=== PATIENT | male | born 1960 | race Caucasian/White ===

== ENCOUNTER → 2018-01-25 12:40 | Outpatient (CLI) | payer BC, SELFPAY ==
--- NOTE | 2018-01-25 12:46 | CT_ITS ---
STUDY: CT CHEST WITH T WITHOUT CONTRAST REASON FOR EXAM: Male, 57 years old. Chest pain, lymphadenopathy RADIATION DOSAGE (If Supplied By Facility): CTDIvol = ( 20.56 ) mGy, DLP = ( 3334.33 ) mGycm TECHNIQUE: Transaxial imaging was performed before and after intravenous administration of 100 ml of Isovue 300 contrast material. Sagittal and coronal reconstructions were performed. Individualized dose optimization techniques were used for this CT. COMPARISON: Chest radiograph report dated June 10, 2011 FINDINGS: There is minimal biapical scarring. There is minimal scarring in the lingula. There are no lung nodules. There are no focal airspace opacities. There is no demonstrated pleural abnormality. The heart is normal in size. The mediastinum is unremarkable. The hilar regions are unremarkable. The pulmonary arteries are unremarkable. The thoracic aorta is within normal limits. There is an old fracture of the right clavicle. There are mild degenerative changes in the visualized spine. There is diffuse decreased density of the liver. CT/Chest W/WO Contrast IMPRESSION: There is no significant lymphadenopathy in the chest. There are no significant parenchymal abnormalities. Specifically there are no lung nodules. There are no focal airspace abnormalities. There is no pleural effusion. Incidentally noted is diffuse fatty infiltration of the liver. Electronically Signed: Liliana Garcia MD at 18:00 EDT Tel Direct: [phone], Service support ,
--- NOTE | 2018-01-25 12:46 | CT_ITS ---
STUDY: CT SOFT TISSUE NECK WITH AND WITHOUT CONTRAST REASON FOR EXAM: Male, 57 years old. Left shoulder, chest and neck pain RADIATION DOSAGE (If Supplied By Facility): CTDIvol = ( 20.56 ) mGy, DLP = ( 3334.33 ) mGycm TECHNIQUE: The patient was scanned in a multi-detector CT scanner. High resolution transaxial imaging was performed prior to and following intravenous administration of 100 ml of Isovue 300 contrast material. Sagittal and coronal images were reconstructed. Individualized dose optimization techniques were used for this CT. COMPARISON: None. FINDINGS: Normal bilateral parotid glands. Normal bilateral cook helper meat spaces. Normal bilateral parapharyngeal spaces. Normal bilateral carotid spaces. Normal bilateral sublingual and submandibular glands and spaces. Normal visualized nasopharynx. Normal retropharyngeal space. Normal perivertebral space. Normal visualized bilateral faucial tonsils. The visualized tongue, tongue base and oropharynx are normal. The visualized cervical lymph nodes (levels I-) are within normal size limits, and maintain normal morphology. There is no demonstrated solid or cystic mass lesion. There is no abnormal contrast enhancement. Normal epiglottis, bilateral vallecula and hypopharynx. The pre-epiglottic and paraglottic adipose spaces are normal. Normal visualized bilateral piriform sinuses, aryepiglottic folds, vocal cords, and arytenoid-cricoid articulations. Normal subglottic trachea. Normal bilateral lobes of the thyroid gland. Normal visualized pulmonary apices. Normal visualized paranasal sinuses. Mild degenerative changes of the visualized cervical spine. Minor annular bulge at C3-4 and C4-5. Uncovertebral spurring slightly narrowing the neural foramina bilaterally at C5-6 and C6-7. CT/Soft Tissue Neck W/WO Contrast IMPRESSION: Normal unenhanced and enhanced CT examination of the soft tissues of the neck. Degenerative cervical changes. Electronically Signed: Endy Coburn DO at 0:00 EDT Tel [phone], Service support ,
[2018-01-25 13:36] LABS: Absolute Neutrophil Count 2.7 X10^3/uL (2.0-7.7); Basophil# 0.03 X10^3/uL; Basophil% 0.6 % (0-1); Eosinophil# 0.17 X10^3/uL; Eosinophils% 3.4 % (0-5); Hematocrit 42.8 % (40-54); Hemoglobin 14.5 g/dl (13.0-16.5); Lymphocyte % 35.9 % (19-41); Mean Corp Hgb Conc 33.9 g/gl (32-36); Mean Corpuscular Hgb 30.1 pg (27.0-32.0); Mean Platelet Vol. 9.7 fl (6.2-12.0); Monocyte# 0.35 X10^3/uL; Neutrophil # 2.65 X10^3/uL (2.7-7.7); Neutrophil % 52.9 % (47-70); Platelet Count 250 K/mm3 (150-450); RBC Distribution Width CV 12.3 % (11.6-14.6); RBC Distribution Width SD 39.8 fl (35.1-43.9); Red Blood Count 4.81 M/mm3 (4.6-6.2)
[2018-01-25 13:37] LABS: POSITIVE COUNT NO; POSITIVE DIFFERENTIAL NO; POSITIVE MORPHOLOGY NO
[2018-01-25 14:00] LABS: ALB/GLOB Ratio 1.4 RATIO (0.9-2.4); AST(SGOT) 33 U/L (15-37); Alanine Aminotransfer ALT/SGPT 69 U/L (16-61); Albumin, Serum 4.4 g/dL (3.2-5.0); Alkaline Phosphatase 37 U/L (45-117); Anion Gap 5 (5-15); BUN 26 mg/dL (7-18); BUN/Creat Ratio 19.5 RATIO (10-20); Chloride 105 mmol/L (98-107); Creatinine, Serum 1.33 mg/dL (0.70-1.30); EST Glomerular Filtration Rate 59 mL/min (>60); Est Glom Filt Rate - Afr Amer 71 mL/min (>60); Globulin 3.2 g/dL (2.2-4.2); Glucose 83 mg/dL (74-106); Potassium 4.6 mmol/L (3.5-5.1); Protein, Total 7.6 g/dL (6.4-8.2); Sodium Level 138 mmol/L (136-145)
== END ==
PROVIDERS: Family Provider Nurse Practitioner Family; PCP Nurse Practitioner Family; Visit Provider Nurse Practitioner Family
DX: R59.1 Generalized enlarged lymph nodes (principal)
CPT/HCPCS: 36415; 70492; 71270; 80053; 85025; Q9967

== ENCOUNTER → 2018-01-30 08:13 | Outpatient (CLI) | payer BC, SELFPAY ==
[2018-01-30 09:45] LABS: Absolute Lymphocyte Count 1.39 X10^3/ul (0.83-4.51); Basophil# 0.02 X10^3/uL; Basophil% 0.5 % (0-1); Eosinophil# 0.17 X10^3/uL; Eosinophils% 4.3 % (0-5); Hematocrit 44.8 % (40-54); Hemoglobin 15.4 g/dl (13.0-16.5); Lymphocyte # 1.39 X10^3/ul (4.0); Lymphocyte % 35.5 % (19-41); Mean Corp Hgb Conc 34.4 g/gl (32-36); Mean Corpuscular Hgb 30.3 pg (27.0-32.0); Monocyte# 0.31 X10^3/uL; Monocyte% 7.9 % (0-10); Neutrophil # 2.01 X10^3/uL (2.7-7.7); Neutrophil % 51.5 % (47-70); Platelet Count 250 K/mm3 (150-450); RBC Distribution Width SD 38.4 fl (35.1-43.9); Red Blood Count 5.09 M/mm3 (4.6-6.2); White Blood Count 3.9 K/mm3 (4.4-11.0)
[2018-01-30 09:47] LABS: POSITIVE COUNT NO; POSITIVE DIFFERENTIAL NO; POSITIVE MORPHOLOGY NO
[2018-01-30 10:04] LABS: ALB/GLOB Ratio 1.3 RATIO (0.9-2.4); AST(SGOT) 41 U/L (15-37); Alanine Aminotransfer ALT/SGPT 74 U/L (16-61); Albumin, Serum 4.4 g/dL (3.2-5.0); Alkaline Phosphatase 40 U/L (45-117); Anion Gap 6 (5-15); BUN 30 mg/dL (7-18); BUN/Creat Ratio 24.6 RATIO (10-20); Chloride 107 mmol/L (98-107); Cholesterol 177 mg/dL (200); Creatinine, Serum 1.22 mg/dL (0.70-1.30); EST Glomerular Filtration Rate 65 mL/min (>60); Est Glom Filt Rate - Afr Amer 79 mL/min (>60); Globulin 3.3 g/dL (2.2-4.2); Glucose 83 mg/dL (74-106); High Density Lipoprotein 30 mg/dL; Potassium 4.7 mmol/L (3.5-5.1); Protein, Total 7.7 g/dL (6.4-8.2); Sodium Level 141 mmol/L (136-145); Triglycerides 186 mg/dL; Very Low Density Lipoprotein 37 mg/dL (5-40)
[2018-02-03 16:08] LABS: Testosterone, Free 1.85 ng/dL (5.00-21.00)
[2018-02-04 08:10] LABS: Testosterone, % Free 3.03 % (1.50-4.20); Testosterone, Total 61 ng/dL (264-916)
== END ==
PROVIDERS: Family Provider Nurse Practitioner Family; PCP Nurse Practitioner Family; Visit Provider Nurse Practitioner Family
DX: E78.5 Hyperlipidemia, unspecified (principal); I10 Essential (primary) hypertension; E34.9 Endocrine disorder, unspecified
CPT/HCPCS: 36415; 80053; 80061; 84402; 84403; 85025

== ENCOUNTER → 2018-03-23 10:46 | Outpatient (CLI) | payer BC, SELFPAY ==
--- NOTE | 2018-03-23 10:49 | ECHOD_ITS ---
Reason For Study: DYSPNEA/SOB Procedure This was a 2D Doppler, Color Flow transthoracic echocardiogram. Exam performed in department. Left Ventricle Normal size and thickness. The estimated ejection fraction is 65 %. Stage 1 diastolic dysfunction. No regional wall motion abnormalities noted. Right Ventricle Normal size and thickness. Normal systolic function. Atria Normal left atrium. Normal right atrium. Normal atrial septum. Mitral Valve The mitral valve is structurally normal. No prolapse or stenosis seen. Tricuspid Valve Normal tricuspid valve. Trivial tricuspid valve insufficiency. Right ventricular systolic pressure estimated to be 29 mmHg. Aortic Valve Trisinus/trileaflet aortic valve. Mild diffuse aortic valve thickening. Mild (1+) eccentric aortic valve insufficiency. Pulmonic Valve Normal pulmonic valve. Great Vessels Normal aortic root. Normal arch. Normal inferior vena cava. Inferior vena cava collapse with sniff. Pericardium/Pleural No pericardial effusion. MMode/2D Measurements & Calculations LVIDd: 4.9 cm IVSd: 1.2 cm Ao root diam: 3.5 cm LVIDs: 3.1 cm LVPWd: 1.2 cm LA dimension: 3.7 cm RVDd: 3.4 cm FS: 37.3 % LAV(MOD-bp): 43.2 ml LA A4 area: 12.7 cm2 RA A4 area: 14.0 cm2 LAV(MOD-bp) Indexed: 20.2 ml/m2 LAV(MOD-sp2): 46.2 ml LAV(MOD-sp4): 33.1 ml Doppler Measurements & Calculations MV E max ronald: 91.2 cm/sec Lat Peak E' Ronald: 8.1 cm/sec Med Peak E' Ronald: 11.2 cm/sec MV A max ronald: 52.5 cm/sec E/E' lat: 11.3 E/E' med: 8.2 MV E/A: 1.7 Ao V2 max: 117.1 cm/sec AI max ronald: 459.3 cm/sec LV V1 max: 99.4 cm/sec Ao max P.5 mmHg AI max P.4 mmHg LV V1 max P.0 mmHg AI dec slope: 172.7 cm/sec2 AI P1/2t: 778.7 msec PA V2 max: 123.1 cm/sec TR max ronald: 239.7 cm/sec TR max P.0 mmHg Interpretation Summary The estimated ejection fraction is 65 %. Stage 1 diastolic dysfunction. Trivial tricuspid valve insufficiency. Right ventricular systolic pressure estimated to be 29 mmHg. Mild (1+) eccentric aortic valve insufficiency. Compared to echo report dated 05/27/2013, no appreciable changes noted. Ordering Physician: Asael Bruner Referring Physician: Scar Allen Performed By: Eulalia Lewis, HAIR, RVT
== END ==
PROVIDERS: Family Provider Nurse Practitioner Family; PCP Nurse Practitioner Family; Visit Provider Internal Medicine Cardiovascular Disease
DX: R06.00 Dyspnea, unspecified (principal); I10 Essential (primary) hypertension; E78.5 Hyperlipidemia, unspecified
CPT/HCPCS: 93306

== ENCOUNTER → 2018-04-18 13:43 | Outpatient (CLI) | payer BC, SELFPAY ==
--- NOTE | 2018-04-18 13:48 | STE_ITS ---
Reason For Study: HTN, ABN. EKG Stress Results Protocol: Darci Protocol Maximum Predicted HR: 164 bpm Target HR: 139 bpm% Max imum Predicted HR: 86 % DurationHeart Rate Stage (mm:ss) (bpm) BP BASELINE 60 132/80 STAGE 1 3:00 10 7 182/80 STAGE 2 3:00 14 1 230/98 RECOVERY 83 152/90 Stress Duration: 6:00 mm:ss Maximum Stress HR: 141 bpm Baseline Echocardiogram Findings The estimated ejection fraction is 65 %. Stress Echo Wall motion Data Resting WMIntermediate WMStress WM Resting Wall Motion Wall Motion Stress No regional wall motion No regional wall motion abnormalities noted. abnormalities noted. EKG Data Normal intervals are noted. The patient exercised according to the regular Darci protocol for a total duration of 6:01. The maximum heart rate attained was 141 beats per minute. This was 85% of maximum predicted heart rate. The patient exercised into stage 3 of the Darci protocol. During stress, there were no ST or T wave changes noted to suggest ischemia. No clinical angina was noted. No arrhythmias noted. Interpretation Summary The estimated ejection fraction is 65 %. Normal, adequate, treadmill echocardiogram. Negative for ischemia by EKG and echocardiographic criteria. No anginal symptoms noted. No arrhythmias noted. Hypertensive blood pressure response to exercise. Average exercise capacity for age. Test terminated due to attainment of target heart rate and hypertensive blood pressure response to exercise. Final LVEF is 75%. No complications. Ordering Physician: Asael Bruner Referring Physician: Asael Bruner Performed By: Tiffany Gordon, HAIR, RVT
== END ==
PROVIDERS: Family Provider Nurse Practitioner Family; PCP Nurse Practitioner Family; Visit Provider Internal Medicine Cardiovascular Disease
DX: I10 Essential (primary) hypertension (principal); R94.31 Abnormal electrocardiogram [ECG] [EKG]
CPT/HCPCS: 93017; 93350

== ENCOUNTER → 2018-05-01 14:32 | Outpatient (CLI) | payer BC, SELFPAY ==
--- NOTE | 2018-05-01 14:36 | RAD_ITS ---
STUDY: X-RAY - LUMBAR SPINE REASON FOR EXAM: Male, 57 years old. Lower back pain, chronic. Increasing. TECHNIQUE: 5 view(s) of the lumbar spine were obtained. COMPARISON: None FINDINGS: Normal lumbar lordosis. There is no substantial scoliosis. There is a normal alignment of the vertebrae. Normal vertebral bodies and endplates. Normal disc space heights. The soft tissue structures are unremarkable. RAD/L/S Spine Min 4 Views IMPRESSION: Normal x-ray examination of the lumbar spine. Electronically Signed: Scar Roland, at 15:01 EDT Tel , Service support ,
== END ==
PROVIDERS: Family Provider Nurse Practitioner Family; PCP Nurse Practitioner Family; Visit Provider Anesthesiology Pain Medicine
DX: M54.5 Low back pain (principal)
CPT/HCPCS: 72110

== ENCOUNTER → 2018-06-18 10:32 | Outpatient (CLI) | payer BC, SELFPAY | PROVIDERS: Family Provider Nurse Practitioner Family; PCP Nurse Practitioner Family; Visit Provider Nurse Practitioner Family | DX: M54.5 Low back pain (principal); M51.37 Other intervertebral disc degeneration, lumbosacral region; M47.897 Other spondylosis, lumbosacral region | CPT/HCPCS: 70030; 72148 ==

== ENCOUNTER → 2018-07-19 11:00 | Outpatient (CLI) | payer BC, SELFPAY ==
--- NOTE | 2018-07-19 11:03 | US_ITS ---
STUDY: SUPERFICIAL ULTRASOUND - AXILLARY AREA REASON FOR EXAM: Male, 57 years old. Targeted imaging with pain in the left axillary region TECHNIQUE: A superficial ultrasound was performed with real-time and static stoddard-scale imaging. COMPARISON: None. FINDINGS: In the region the left axilla, in the area of pain, there is a small benign-appearing lymph node measuring 3.6 x 0.6 cm. US/Ext Non Vasc Limited/Soft Tiss IMPRESSION: Benign appearing lymph node in the left axilla Electronically Signed: Reynaldo Bocanegra DO at 11:49 EDT Tel , Service support ,
== END ==
PROVIDERS: Family Provider Nurse Practitioner Family; PCP Nurse Practitioner Family; Visit Provider Family Medicine
DX: M25.812 Other specified joint disorders, left shoulder (principal)
CPT/HCPCS: 76882

== ENCOUNTER → 2019-04-08 | Outpatient (CLI) | payer BC, SELFPAY ==
[2018-09-28 11:11] VITALS: BMI 29.8
--- NOTE | 2019-04-08 11:50 | RAD_ITS ---
STUDY: X-RAY - LEFT SHOULDER REASON FOR EXAM: Male, 58 years old. Pain TECHNIQUE: 4 view(s) of the shoulder. COMPARISON: None. FINDINGS: Normal glenohumeral articulation. Normal acromioclavicular joint. Normal acromion. Normal humeral head and visualized proximal humerus. The soft tissue structures are unremarkable. Normal visualized pulmonary apex. RAD/Shoulder min 2 Views IMPRESSION: Normal x-ray examination of the shoulder. Electronically Signed: Jen Pacheco MD at 17:30 EDT Tel , Service support ,
== END | disposition home or self-care (01) ==
LOC: RAD 11:49
PROVIDERS: Family Provider Family Medicine; PCP Family Medicine; Referring Provider Anesthesiology Pain Medicine; Visit Provider Anesthesiology Pain Medicine
DX: M25.512 Pain in left shoulder (principal)
CPT/HCPCS: 73030

== ENCOUNTER → 2019-04-18 | Outpatient (CLI) | payer BC, SELFPAY ==
[2019-04-18 14:00] VITALS: BMI 29.5
--- NOTE | 2019-04-18 15:06 | RAD_ITS ---
HISTORY: SHORT OF BREATH, PT HAVING STENT PLACED ADDITIONAL HISTORY: None provided. COMPARISON: CT 01/25/2018 TECHNIQUE: Frontal and lateral chest radiographs. Number of images including paperwork: 2 FINDINGS: LUNGS AND PLEURA: No consolidation, mass or pleural effusion. CARDIAC SILHOUETTE: Unremarkable. MEDIASTINUM AND SISSY: Aortic tortuosity. UPPER ABDOMEN: Unremarkable. SKELETON AND SOFT TISSUES: No acute findings. OTHER DEVICES AND HARDWARE: None. RAD/Chest PA and Lateral IMPRESSION: No acute cardiopulmonary abnormality. at 0438 Reported and signed by: Marita Pollack MD Electronically Signed: Marita Pollack MD at 4:38 EDT Tel , Service support ,
[2019-04-18 17:04] LABS: Absolute Lymphocyte Count 1.88 X10^3/ul (0.83-4.51); Absolute Neutrophil Count 2.1 X10^3/uL (2.0-7.7); Basophil# 0.04 X10^3/uL; Basophil% 0.9 % (0-1); Eosinophil# 0.16 X10^3/uL; Eosinophils% 3.4 % (0-5); Hemoglobin 13.5 g/dl (13.0-16.5); Lymphocyte # 1.88 X10^3/ul (4.0); Lymphocyte % 40.3 % (19-41); Mean Corp Hgb Conc 33.8 g/gl (32-36); Mean Corpuscular Hgb 29.3 pg (27.0-32.0); Mean Corpuscular Volume 86.8 fL (80-94); Mean Platelet Vol. 9.6 fl (6.2-12.0); Monocyte# 0.47 X10^3/uL; Monocyte% 10.1 % (0-10); Neutrophil # 2.11 X10^3/uL (2.7-7.7); Neutrophil % 45.1 % (47-70); Platelet Count 220 K/mm3 (150-450); RBC Distribution Width CV 12.2 % (11.6-14.6); RBC Distribution Width SD 38.7 fl (35.1-43.9); Red Blood Count 4.61 M/mm3 (4.6-6.2); White Blood Count 4.7 K/mm3 (4.4-11.0)
[2019-04-18 17:06] LABS: Prothrombin Time (Protime)PT. 13.3 SECONDS (11.7-14.9)
[2019-04-18 17:08] LABS: POSITIVE COUNT NO; POSITIVE DIFFERENTIAL NO; POSITIVE MORPHOLOGY NO
[2019-04-18 17:18] LABS: AST(SGOT) 46 U/L (15-37); Alanine Aminotransfer ALT/SGPT 85 U/L (16-61); Albumin, Serum 3.7 g/dL (3.2-5.0); Alkaline Phosphatase 36 U/L (45-117); Anion Gap 6 (5-15); BUN 20 mg/dL (7-18); BUN/Creat Ratio 14.4 RATIO (10-20); Bilirubin, Direct 0.08 mg/dL (0.00-0.30); Calcium,Total 9.1 mg/dL (8.5-10.1); Chloride 106 mmol/L (98-107); Creatinine, Serum 1.39 mg/dL (0.70-1.30); EST Glomerular Filtration Rate 56 mL/min (>60); Est Glom Filt Rate - Afr Amer 68 mL/min (>60); Globulin 3.5 g/dL (2.2-4.2); Glucose 85 mg/dL (74-106); Potassium 4.2 mmol/L (3.5-5.1); Protein, Total 7.2 g/dL (6.4-8.2); Sodium Level 144 mmol/L (136-145)
== END | disposition home or self-care (01) ==
PROVIDERS: Family Provider Family Medicine; PCP Family Medicine; Referring Provider Internal Medicine Cardiovascular Disease; Visit Provider Internal Medicine Cardiovascular Disease
DX: R06.09 Other forms of dyspnea (principal); E78.5 Hyperlipidemia, unspecified
CPT/HCPCS: 36415; 71046; 80048; 80076; 85025; 85610

== ENCOUNTER → 2019-05-03 | Outpatient (CLI) | payer BC, SELFPAY ==
[2019-04-18 14:00] VITALS: BMI 29.5
[2019-05-03 10:53] LABS: Cholesterol 175 mg/dL (200); High Density Lipoprotein 32 mg/dL; Triglycerides 220 mg/dL; Very Low Density Lipoprotein 44 mg/dL (5-40)
== END | disposition home or self-care (01) ==
LOC: MTLAB 09:03
PROVIDERS: Family Provider Family Medicine; PCP Family Medicine; Referring Provider Internal Medicine Cardiovascular Disease; Visit Provider Internal Medicine Cardiovascular Disease
DX: E78.5 Hyperlipidemia, unspecified (principal)
CPT/HCPCS: 36415; 80061

== ENCOUNTER 2019-05-08 06:58 | Day surgery (SDC) | payer BC, SELFPAY ==
[2019-04-18 14:00] VITALS: BMI 29.5
[2019-05-06 14:18] VITALS: BMI 29.5
[2019-05-08 11:45] LABS: Blood Gas Specimen Type VEN; VBG BASE EXCESS 0 mmol/L (-1.0-3.5); VBG Bicarbonate 25 mmol/L (22-26); VBG Oxygen Content 26 mmol/L (23-33); VBG PO2 36 mmHg (25-40); VBG SO2 70 % (50-70); VBG pCO2 39.6 mmHg (41-51); VBG pH 7.41 (7.32-7.42)
[2019-05-08 11:45] LABS: Base Excess -2 mmol/L (-2 to +2); Bicarbonate 22.3 mmol/L (22-26); Blood Gas Specimen Type ART; PO2 88 mmHG (75-100); SO2 97 % (95-99); Total Carbon Dioxide 23 mmol/L; pCO2 32.7 mmHg (35-45); pH 7.44 (7.35-7.45)
[2019-05-08 11:45] LABS: Blood Gas Specimen Type VEN; VBG BASE EXCESS 0 mmol/L (-1.0-3.5); VBG Bicarbonate 25 mmol/L (22-26); VBG Oxygen Content 26 mmol/L (23-33); VBG PO2 38 mmHg (25-40); VBG SO2 73 % (50-70); VBG pCO2 40.9 mmHg (41-51)
--- NOTE | 2019-05-08 11:48 | CL.D_ITS ---
Patient Name: ELOISE DUTTA Study Date: 05/08/2019 Performing: Asael Bruner MD Ht: 70.86 inches 180 cm : 1960 Wt: 211.64 lbs 96 kg Age: 58 Gender: male BSA: 2.16 PROCEDURE(S) PERFORMED [id number]/LHC/COR/LV CLINICAL PROFILE AND INDICATIONS Indications: Other;Dyspnea on exertion., Suspected CAD Heart Failure: None Stress/Imaging Stress Echocardiogram: Yes Result: NegativeStress Echocardiogram: Negative Angina Classification Anginal Classification w/in 2 Weeks: No symptoms CAD Presentations: Other: Dyspnea on exertion Comorbidities/Risk Factors: Hypertension Dyslipidemia CONCLUSIONS Normal coronary arteries Normal LV size, wall motion,and systolic function Cardiac output - Preserved The patient has normal pulmonary hemodynamics. RECOMMENDATIONS No recommendations -> Normal findings D/c asa/plavix Manual sheath removal PFTS and pulmonary consult. DESCRIPTION OF PROCEDURE The patient arrived to the procedure lab. The risks and benefits of the procedure as well as a full d escription of our services here and current unavailability of surgical backup were fully explained to the patient and/or their significant other prior to the catheterization. The Timeout was completed, verifying the correct patient and procedure. The patient's procedural site was prepped and draped in the usual fashion. Local anesthetic was given subcutaneously to right groin region with Lidocaine 2%. Using a modified Seldinger technique, arterial access was obtained via the right femoral artery, a 4 Fr sheath was inserted Venous access was obtained via the right femoral vein, a 7Fr sheath was insert ed. A 7Fr thermal dilution catheter was inserted and right heart pressures were recorded, it was then advanced to PA position for cardiac outputs. O2 saturations were then obtained. Thermal dilution car diac outputs were then recorded. Simultaneous pressures were then recorded. Left Ventriculography was performed in AGUIAR projection using a 4 Fr. Pigtail catheter. LV to AO pullback pr essures were then recorded. The Thermal dilution catheter was then removed. Left Coronary Artery jahaira ctive angiography was performed in multiple views using a 4 Fr. JL5 catheter. Right Coronary Artery s elective angiography was then performed in multiple views using a 4 Fr. 3DRC catheter.The arterial sh eath was pulled and manual compression applied until hemostasis is achieved.. The venous sheath was t hen pulled and manual compression applied until hemostasis achieved CORONARY ANGIOGRAPHY DOMINANCE: Right Dominant LEFT HEART ASSESSMENT Left Ventricular Ejection Fraction: by LV Gram 65 % Normal LV wall motion Normal Left Ventricular systolic function Normal Left Ventricular systolic function LVEDP: 11 mmHg Normal Left Ventricular End Diastolic Pressure RIGHT HEART ASSESSMENT Thermal CO: 6.27 Thermal CI: 2.9 Giulia CO: 6.02 Giulia CI: 2.79 PW: 6/4 3 PA: 19/8 12 RV: 30/-3 4 RA: 3/2 0 PVR: 115 Right Heart pressures - normal LEFT MAIN: Angiographically normal, Mild calcification, Angiographically normal LEFT ANTERIOR DESCENDING ARTERY: Angiographically normal, Angiographically normal CIRCUMFLEX ARTERY: Angiographically normal, Angiographically normal RIGHT CORONARY ARTERY: Angiographically normal Angiographically normal COMPLICATIONS No Complications PROCEDURE MEDICATIONS No medications given during this procedure SUMMARY OF HEMODYNAMIC DATA Time AIR REST ECG 07:26:35 RA 3/2 (0) 11:18:02 RV 30/-3, 4 11:18:14 PW 6/4 (3) PV 11:18:33 PA 19/8 (12) PA 11:18:46 LV 138/-25, 11 11:23:27 LV 139/-26, 11 11:23:34 LV 137/-26, 8 11:23:53 PW 8/5 (4) 11:23:53 LV 141/-26, 9 11:24:18 PW 21/14 (13) 11:24:18 LV 138/-24, 10 11:24:44 RV 25/-2, 5 11:24:44 LV 139/-24, 10 11:24:49 RV 25/-1, 4 11:24:49 LVp 155/-21, 14 11:26:07 AOp 135/67 (94) 11:26:12 RM AIR REST 11:46:16 Type SV CO (l/m) CI (l/m/ HR Time AIR REST Thermal 93.60 6.27 2.90 67 07:26:35 Giulia 89.90 6.02 2.79 67 07:26:35 Label % O2 Pres/Loc Time AIR REST AO 97 PV 11:31:17 PA 71 PA 11:31:21 Signed By Asael Bruner MD On 05/08/2019 11:47:57 Asael Bruner MD
== END 2019-05-08 16:10 | disposition home or self-care (01) ==
LOC: CLSP 06:59
PROVIDERS: Family Provider Family Medicine; PCP Family Medicine; Referring Provider Internal Medicine Cardiovascular Disease; Visit Provider Internal Medicine Cardiovascular Disease
DX: R06.09 Other forms of dyspnea (principal); I12.9 Hypertensive chronic kidney disease with stage 1 through stage 4 chronic kidney disease, or unspecified chronic kidney disease; N18.3 Chronic kidney disease, stage 3 (moderate); E78.5 Hyperlipidemia, unspecified; G47.33 Obstructive sleep apnea (adult) (pediatric); D50.9 Iron deficiency anemia, unspecified; I35.1 Nonrheumatic aortic (valve) insufficiency; I36.1 Nonrheumatic tricuspid (valve) insufficiency; G89.29 Other chronic pain; N40.0 Benign prostatic hyperplasia without lower urinary tract symptoms; M79.7 Fibromyalgia; K21.9 Gastro-esophageal reflux disease without esophagitis; Z79.899 Other long term (current) drug therapy
CPT/HCPCS: 82803; 93460; J7040; Q9967; C1751; C1769; C1894

== ENCOUNTER → 2019-06-06 | Outpatient (CLI) | payer BC, SELFPAY ==
[2019-05-06 14:18] VITALS: BMI 29.5
--- NOTE | 2019-06-06 11:35 | PFTCOMP_ITS ---
COMPLETE PULMONARY FUNCTION TEST INTERPRETATION Brief HPI: Patient is a 58 year old male, currently under the care of Dr. Bruner, who presents to [facility] for complete pulmonary function tests secondary to diagnosis of dyspnea. Respiratory therapist reports good effort and reproducible results. Interpretation: Forced expiration spirometry shows no large airways obstructive ventilatory defect with an FEV1 of 90% predicted. There is no significant bronchodilator response by strict ATS criteria. Spirograms are of good quality and plateau normally. The respiratory flow volume loop shows a normal pattern. Lung volumes by body plethysmography show a normal total lung capacity at 7.39 L, 106% predicted. All other lung volumes are within normal limits. Diffusion capacity by carbon monoxide is normal at 89% predicted. The airway resistance is normal. No previous pulmonary function tests were available for review. Impression: These pulmonary function tests are within normal limits
== END | disposition home or self-care (01) ==
LOC: PSN 07:22
PROVIDERS: Family Provider Family Medicine; PCP Family Medicine; Referring Provider Internal Medicine Cardiovascular Disease; Visit Provider Internal Medicine Cardiovascular Disease
DX: R06.02 Shortness of breath (principal)
CPT/HCPCS: 94060; 94726; 94729

== ENCOUNTER → 2019-08-15 08:21 | Outpatient (CLI) | payer BC, SELFPAY ==
[2019-06-11 10:25] VITALS: BMI 29.1
[2019-08-15 10:55] LABS: AST(SGOT) 32 U/L (15-37); Alanine Aminotransfer ALT/SGPT 68 U/L (16-61); Albumin, Serum 3.8 g/dL (3.2-5.0); Alkaline Phosphatase 34 U/L (45-117); Bilirubin, Direct 0.11 mg/dL (0.00-0.30); Cholesterol 168 mg/dL (200); Globulin 3.5 g/dL (2.2-4.2); High Density Lipoprotein 41 mg/dL; Protein, Total 7.3 g/dL (6.4-8.2); Triglycerides 144 mg/dL; Very Low Density Lipoprotein 29 mg/dL (5-40)
== END ==
PROVIDERS: Family Provider Family Medicine; PCP Family Medicine; Referring Provider Nurse Practitioner Family; Visit Provider Nurse Practitioner Family
DX: E78.5 Hyperlipidemia, unspecified (principal)
CPT/HCPCS: 36415; 80061; 80076

== ENCOUNTER → 2020-01-23 14:55 | Outpatient (CLI) | payer BC, SELFPAY ==
[2019-09-20 10:37] VITALS: BMI 29.1
[2020-01-23 16:07] LABS: PSA,Total- Diagnostic 7.01 ng/mL (0.0-4.0)
[2020-01-25 15:11] LABS: PSA, Free 1.49 ng/mL; PSA, Free % 22.6 % (.); PSA, Total Ultrasensitive 6.6 ng/mL (0.0-4.0)
== END ==
PROVIDERS: PCP Family Medicine; Referring Provider Urology; Visit Provider Urology
DX: R97.20 Elevated prostate specific antigen [PSA] (principal)
CPT/HCPCS: 36415; 84153; 84154

== ENCOUNTER → 2020-02-26 11:22 | Outpatient (CLI) | payer BC, SELFPAY ==
[2019-09-20 10:37] VITALS: BMI 29.1
[2020-02-26 12:30] LABS: PSA,Total- Diagnostic 4.74 ng/mL (0.0-4.0)
== END ==
PROVIDERS: PCP Family Medicine; Referring Provider Urology; Visit Provider Urology
DX: R97.20 Elevated prostate specific antigen [PSA] (principal)
CPT/HCPCS: 36415; 84153

== ENCOUNTER → 2020-11-27 09:14 | Outpatient (CLI) | payer BC, SELFPAY ==
[2019-09-20 10:37] VITALS: BMI 29.1
[2020-10-26 09:32] VITALS: BMI 30.7
[2020-11-27 12:57] LABS: PTHIN 33.4 pg/mL (18.4-80.1)
[2020-11-27 13:05] LABS: Anion Gap 5 (5-15); BUN 16 mg/dL (7-18); BUN/Creat Ratio 13.2 RATIO (10-20); Calcium,Total 9.6 mg/dL (8.5-10.1); Chloride 107 mmol/L (98-107); Creatinine, Serum 1.21 mg/dL (0.70-1.30); EST Glomerular Filtration Rate 65 mL/min (>60); Est Glom Filt Rate - Afr Amer 79 mL/min (>60); Glucose 93 mg/dL (74-106); Potassium 4.1 mmol/L (3.5-5.1); Sodium Level 140 mmol/L (136-145); T4 Free Direct 1.05 ng/dL (0.76-1.46); Thyroid Stim Hormone (TSH) 1.71 uIU/mL (0.358-3.74)
== END ==
PROVIDERS: Internal Medicine Endocrinology, Diabetes & Metabolism; PCP Family Medicine; Referring Provider Family Medicine
DX: E83.52 Hypercalcemia (principal)
CPT/HCPCS: 36415; 80048; 83970; 84439; 84443

== ENCOUNTER → 2020-12-17 10:32 | Outpatient (CLI) | payer BC, SELFPAY ==
[2020-10-26 09:32] VITALS: BMI 30.7
== END ==
PROVIDERS: PCP Family Medicine; Referring Provider Internal Medicine Endocrinology, Diabetes & Metabolism; Visit Provider Internal Medicine Endocrinology, Diabetes & Metabolism
DX: E83.52 Hypercalcemia (principal)

== ENCOUNTER → 2021-08-09 08:48 | Outpatient (CLI) | payer BC, SELFPAY ==
[2021-08-09 09:57] LABS: Hematocrit 40.6 % (40-54); Hemoglobin 13.2 g/dL (13.0-16.5); Mean Corp Hgb Conc 32.5 g/dL (32-36); Mean Corpuscular Volume 89.2 fL (80-94); Mean Platelet Vol. 9.6 fl (6.2-12.0); Platelet Count 212 K/mm3 (150-450); RBC Distribution Width CV 11.8 % (11.6-14.6); RBC Distribution Width SD 37.8 fl (35.1-43.9); Red Blood Count 4.55 M/mm3 (4.6-6.2); White Blood Count 3.8 K/mm3 (4.4-11.0)
[2021-08-09 10:23] LABS: AST(SGOT) 36 U/L (15-37); Alanine Aminotransfer ALT/SGPT 68 U/L (16-61); Albumin, Serum 3.6 g/dL (3.2-5.0); Alkaline Phosphatase 45 U/L (45-117); Anion Gap 5 (5-15); BUN 15 mg/dL (7-18); BUN/Creat Ratio 12.4 RATIO (10-20); Calcium,Total 8.9 mg/dL (8.5-10.1); Chloride 109 mmol/L (98-107); Cholesterol 167 mg/dL (200); Creatinine, Serum 1.21 mg/dL (0.70-1.30); EST Glomerular Filtration Rate 65 mL/min (>60); Est Glom Filt Rate - Afr Amer 79 mL/min (>60); Globulin 3.6 g/dL (2.2-4.2); Glucose 110 mg/dL (74-106); High Density Lipoprotein 36 mg/dL; PSA,Total- Diagnostic 3.79 ng/mL (0.0-4.0); Potassium 4.2 mmol/L (3.5-5.1); Protein, Total 7.2 g/dL (6.4-8.2); Sodium Level 141 mmol/L (136-145); Triglycerides 184 mg/dL; Very Low Density Lipoprotein 37 mg/dL (5-40)
== END ==
PROVIDERS: PCP Nurse Practitioner Family; Referring Provider Nurse Practitioner Family; Visit Provider Nurse Practitioner Family
DX: I12.9 Hypertensive chronic kidney disease with stage 1 through stage 4 chronic kidney disease, or unspecified chronic kidney disease (principal); N18.30 Chronic kidney disease, stage 3 unspecified; R97.20 Elevated prostate specific antigen [PSA]; E78.5 Hyperlipidemia, unspecified; E78.1 Pure hyperglyceridemia
CPT/HCPCS: 36415; 80053; 80061; 84153; 85027

== ENCOUNTER 2022-01-20 11:52 | Outpatient (CLI) | payer OTHER, SELFPAY ==
--- NOTE | 2022-01-20 11:56 | RAD_ITS ---
STUDY: X-RAY - LUMBOSACRAL SPINE REASON FOR EXAM: Male, 61 years old. PAIN TECHNIQUE: 7 view(s) of the lumbosacral spine were obtained. COMPARISON: 05/01/2018 FINDINGS: Normal lumbar lordosis. There is no substantial scoliosis. There is normal alignment of the vertebrae. No subluxation on the flexion or extension views to suggest instability. Normal vertebral bodies and endplates. Normal disc space heights. Normal bilateral sacral ala, sacroiliac joints, and visualized sacrum. Normal visualized soft tissue structures. RAD/L/S Spine Comp/w Bending Views IMPRESSION: Normal x-ray examination of the lumbosacral spine. Electronically Signed: Scar Owen MD at 12:15 EDT ,
== END 2022-01-20 23:59 | disposition home or self-care (01) ==
LOC: MTRAD 11:55
PROVIDERS: PCP Nurse Practitioner Family; Referring Provider Anesthesiology Pain Medicine; Visit Provider Anesthesiology Pain Medicine
DX: M51.37 Other intervertebral disc degeneration, lumbosacral region (principal)
CPT/HCPCS: 72114

== ENCOUNTER 2022-01-31 08:00 | Outpatient (CLI) | payer OTHER, SELFPAY ==
[2022-01-31 10:15] LABS: Hemoglobin 13.8 g/dL (13.0-16.5); Mean Corp Hgb Conc 34.5 g/dL (32-36); Mean Corpuscular Hgb 30.2 pg (27.0-32.0); Mean Corpuscular Volume 87.5 fL (80-94); Mean Platelet Vol. 9.7 fl (6.2-12.0); Platelet Count 226 K/mm3 (150-450); RBC Distribution Width CV 11.9 % (11.6-14.6); RBC Distribution Width SD 37.8 fl (35.1-43.9); Red Blood Count 4.57 M/mm3 (4.6-6.2)
[2022-01-31 10:33] LABS: Vitamin D,25 Hydroxy 63.3 ng/mL
[2022-01-31 10:39] LABS: AST(SGOT) 35 U/L (15-37); Alanine Aminotransfer ALT/SGPT 72 U/L (16-61); Albumin, Serum 3.6 g/dL (3.2-5.0); Alkaline Phosphatase 39 U/L (45-117); Anion Gap 8 (5-15); BUN 20 mg/dL (7-18); BUN/Creat Ratio 13.5 RATIO (10-20); Calcium,Total 9.2 mg/dL (8.5-10.1); Chloride 105 mmol/L (98-107); Cholesterol 194 mg/dL (200); Creatinine, Serum 1.48 mg/dL (0.70-1.30); EST Glomerular Filtration Rate 52 mL/min (>60); Est Glom Filt Rate - Afr Amer 62 mL/min (>60); Globulin 3.6 g/dL (2.2-4.2); Glucose 128 mg/dL (74-106); High Density Lipoprotein 30 mg/dL; PSA,Total - Annual Screen 4.57 ng/mL (0.00-4.00); Potassium 3.9 mmol/L (3.5-5.1); Protein, Total 7.2 g/dL (6.4-8.2); Sodium Level 139 mmol/L (136-145); Triglycerides 280 mg/dL; Very Low Density Lipoprotein 56 mg/dL (5-40)
== END 2022-01-31 23:59 | disposition home or self-care (01) ==
LOC: MTLAB 08:01
PROVIDERS: PCP Nurse Practitioner Family; Referring Provider Nurse Practitioner Family; Visit Provider Nurse Practitioner Family
DX: I12.9 Hypertensive chronic kidney disease with stage 1 through stage 4 chronic kidney disease, or unspecified chronic kidney disease (principal); M18.30 Unilateral post-traumatic osteoarthritis of first carpometacarpal joint, unspecified hand; E78.5 Hyperlipidemia, unspecified; E78.1 Pure hyperglyceridemia; R73.01 Impaired fasting glucose; E55.9 Vitamin D deficiency, unspecified; R97.20 Elevated prostate specific antigen [PSA]
CPT/HCPCS: 36415; 80053; 80061; 82306; 84153; 85027; G0103

== ENCOUNTER → 2022-08-01 | Outpatient (CLI) | payer OTHER, SELFPAY ==
[2022-08-01 10:10] LABS: Absolute Lymphocyte Count 1.51 X10^3/uL (0.83-4.51); Absolute Neutrophil Count 1.9 X10^3/uL (2.0-7.7); Basophil# 0.04 X10^3/uL; Eosinophil# 0.22 X10^3/uL; Eosinophils% 5.4 % (0-5); Hematocrit 39.9 % (40-54); Hemoglobin 13.1 g/dL (13.0-16.5); Lymphocyte # 1.51 X10^3/ul (0.83-4.51); Lymphocyte % 36.8 % (19-41); Mean Corp Hgb Conc 32.8 g/dL (32-36); Mean Corpuscular Hgb 29.6 pg (27.0-32.0); Mean Corpuscular Volume 90.1 fL (80-94); Mean Platelet Vol. 9.5 fl (6.2-12.0); Monocyte# 0.39 X10^3/uL; Monocyte% 9.5 % (0-10); NRBC Flagged by Analyzer 0 % (0-5); Neutrophil # 1.91 X10^3/uL (2.7-7.7); Neutrophil % 46.6 % (47-70); Platelet Count 232 K/mm3 (150-450); RBC Distribution Width CV 12.1 % (11.6-14.6); RBC Distribution Width SD 39.9 fl (35.1-43.9); Red Blood Count 4.43 M/mm3 (4.6-6.2); White Blood Count 4.1 K/mm3 (4.4-11.0)
[2022-08-01 10:35] LABS: Hemoglobin A1c 6.1 % (3.8-5.6)
[2022-08-01 10:49] LABS: AST(SGOT) 35 U/L (15-37); Alanine Aminotransfer ALT/SGPT 54 U/L (16-61); Albumin, Serum 3.7 g/dL (3.2-5.0); Alkaline Phosphatase 36 U/L (45-117); Anion Gap 7 (5-15); BUN 31 mg/dL (7-18); Calcium,Total 9.5 mg/dL (8.5-10.1); Chloride 107 mmol/L (98-107); Cholesterol 206 mg/dL (200); Creatinine, Serum 1.55 mg/dL (0.70-1.30); EST Glomerular Filtration Rate 49 mL/min (>60); Est Glom Filt Rate - Afr Amer 59 mL/min (>60); Globulin 3.7 g/dL (2.2-4.2); Glucose 129 mg/dL (74-106); High Density Lipoprotein 31 mg/dL; PSA,Total- Diagnostic 6.47 ng/mL (0.0-4.0); Potassium 3.9 mmol/L (3.5-5.1); Protein, Total 7.4 g/dL (6.4-8.2); Sodium Level 142 mmol/L (136-145); Triglycerides 290 mg/dL; Very Low Density Lipoprotein 58 mg/dL (5-40)
[2022-08-01 11:52] LABS: Vitamin D,25 Hydroxy 66.4 ng/mL
== END | disposition home or self-care (01) ==
PROVIDERS: PCP Nurse Practitioner Family; Referring Provider Nurse Practitioner Family; Visit Provider Nurse Practitioner Family
DX: R73.01 Impaired fasting glucose (principal); N18.30 Chronic kidney disease, stage 3 unspecified; E78.5 Hyperlipidemia, unspecified; R97.20 Elevated prostate specific antigen [PSA]; E55.9 Vitamin D deficiency, unspecified
CPT/HCPCS: 36415; 80053; 80061; 82306; 83036; 84153; 85025

== ENCOUNTER → 2022-12-28 | Outpatient (CLI) | payer OTHER, SELFPAY ==
[2022-12-28 10:14] LABS: Hematocrit 39.3 % (40-54); Hemoglobin 13.4 g/dL (13.0-16.5); Mean Corp Hgb Conc 34.1 g/dL (32-36); Mean Corpuscular Hgb 30.2 pg (27.0-32.0); Mean Corpuscular Volume 88.7 fL (80-94); Mean Platelet Vol. 9.7 fl (6.2-12.0); Platelet Count 227 K/mm3 (150-450); RBC Distribution Width CV 11.9 % (11.6-14.6); Red Blood Count 4.43 M/mm3 (4.6-6.2); White Blood Count 4.3 K/mm3 (4.4-11.0)
[2022-12-28 10:25] LABS: PTHIN 22.9 pg/mL (18.4-80.1)
[2022-12-28 10:28] LABS: Vitamin D,25 Hydroxy 74.4 ng/mL
[2022-12-28 10:31] LABS: AST(SGOT) 33 U/L (15-37); Alanine Aminotransfer ALT/SGPT 55 U/L (16-61); Albumin, Serum 3.6 g/dL (3.2-5.0); Alkaline Phosphatase 37 U/L (45-117); Anion Gap 7 (5-15); BUN 29 mg/dL (7-18); BUN/Creat Ratio 15.3 RATIO (10-20); Calcium,Total 9.5 mg/dL (8.5-10.1); Chloride 104 mmol/L (98-107); Cholesterol 186 mg/dL (200); Creatinine, Serum 1.89 mg/dL (0.70-1.30); EST Glomerular Filtration Rate 39 mL/min (>60); Est Glom Filt Rate - Afr Amer 47 mL/min (>60); Globulin 3.5 g/dL (2.2-4.2); Glucose 132 mg/dL (74-106); High Density Lipoprotein 32 mg/dL; Potassium 3.8 mmol/L (3.5-5.1); Protein, Total 7.1 g/dL (6.4-8.2); Sodium Level 141 mmol/L (136-145); Triglycerides 266 mg/dL; Very Low Density Lipoprotein 53 mg/dL (5-40)
[2023-01-07 12:33] LABS: PSA, Free 0.27 ng/mL; PSA, Free % 16.8 % (.); Renin, Plasma 9.257 ng/mL/hr (0.167-5.380)
== END | disposition home or self-care (01) ==
PROVIDERS: PCP Nurse Practitioner Family; Referring Provider Urology; Visit Provider Urology
DX: R97.20 Elevated prostate specific antigen [PSA] (principal); N18.30 Chronic kidney disease, stage 3 unspecified; E78.5 Hyperlipidemia, unspecified; E78.1 Pure hyperglyceridemia; R73.01 Impaired fasting glucose; I12.9 Hypertensive chronic kidney disease with stage 1 through stage 4 chronic kidney disease, or unspecified chronic kidney disease
CPT/HCPCS: 36415; 80053; 80061; 82306; 83970; 84153; 84154; 84244; 85027

== ENCOUNTER → 2023-03-29 | Outpatient (CLI) | payer OTHER, SELFPAY ==
--- NOTE | 2023-03-29 10:39 | ECHOD_ITS ---
Reason For Study: SOB Procedure This was a 2D Doppler, Color Flow transthoracic echocardiogram. Exam performed in department. Left Ventricle Normal LV size. Mild concentric left ventricular hypertrophy. Left ventricular systolic function is normal. The estimated ejection fraction is 60 %. No regional wall motion abnormalities noted. Right Ventricle Normal RV size. Normal systolic function. Atria Normal left atrium. Normal right atrium. Mitral Valve Normal mitral valve. Tricuspid Valve Normal tricuspid valve. Mild (1+) tricuspid valve insufficiency. Pulmonary artery systolic pressure is 30 mmHg. Aortic Valve Trisinus/trileaflet aortic valve. Pulmonic Valve Normal pulmonic valve. Great Vessels Normal aortic root. The pulmonary artery is normal size. Normal inferior vena cava. Pericardium/Pleural No pericardial effusion. MMode/2D Measurements & Calculations LVIDd: 5.2 cm IVSd: 1.4 cm Ao root diam: 3.5 cm LVIDs: 3.6 cm LVPWd: 1.4 cm FS: 31.1 % LAV(MOD-bp): 43.3 ml LVAd ap4: 33.6 cm2 SV(MOD-sp4): 64.4 ml LAV(MOD-bp) Indexed: 19.2 ml/m2 LVLd ap4: 8.4 cm LAV(MOD-sp2): 30.7 ml EDV(MOD-sp4): 110.0 ml LAV(MOD-sp4): 60.1 ml EDV(sp4-el): 113.6 ml LVAs ap4: 18.8 cm2 LVLs ap4: 6.5 cm ESV(MOD-sp4): 45.6 ml ESV(sp4-el): 46.3 ml EF(MOD-sp4): 58.5 % EF(sp4-el): 59.2 % SV(sp4-el): 67.3 ml LA A4 area: 18.3 cm2 LA dimension(2D): 4.3 cm RA A4 area: 14.5 cm2 Time Measurements MV dec time: 0.19 sec Doppler Measurements & Calculations MV E max ronald: 87.9 cm/sec Lat Peak E' Ronald: 11.7 cm/sec Med Peak E' Ronald: 10.4 cm/sec MV A max ronald: 59.6 cm/sec E/E' lat: 7.5 E/E' med: 8.5 MV E/A: 1.5 MV V2 max: 92.4 cm/sec Ao V2 max: 142.3 cm/sec MV max P.4 mmHg MV dec slope: 461.5 cm/sec2 Ao max P.1 mmHg MV V2 mean: 53.6 cm/sec Ao V2 mean: 98.1 cm/sec MV mean P.3 mmHg Ao mean P.4 mmHg MV V2 VTI: 35.8 cm Ao V2 VTI: 33.4 cm AV (velocity ratio): 0.93 LV V1 max: 116.8 cm/sec PA V2 max: 139.2 cm/sec TR max ronald: 262.9 cm/sec LV V1 max P.5 mmHg PA V2 mean: 85.4 cm/sec TR max P.6 mmHg LV V1 mean P.9 mmHg LV V1 mean: 81.0 cm/sec LV V1 VTI: 31.1 cm ECHO/Echo Complete Interpretation Summary Normal LV size. Left ventricular systolic function is normal. The estimated ejection fraction is 60 %. Mild (1+) tricuspid valve insufficiency. Mild concentric left ventricular hypertrophy. Ordering Physician: Jett Cui Referring Physician: Jett Cui Performed By: Angelica Casey RCS
== END | disposition home or self-care (01) ==
LOC: CVS 10:38
PROVIDERS: PCP Nurse Practitioner Family; Referring Provider Internal Medicine Cardiovascular Disease; Visit Provider Internal Medicine Cardiovascular Disease
DX: R06.09 Other forms of dyspnea (principal); R06.02 Shortness of breath
CPT/HCPCS: 93306

== ENCOUNTER → 2023-04-07 | Outpatient (CLI) | payer OTHER, SELFPAY ==
[2023-04-07 16:06] LABS: Anion Gap 4 (5-15); BUN 27 mg/dL (7-18); BUN/Creat Ratio 20.9 RATIO (10-20); Calcium,Total 9.6 mg/dL (8.5-10.1); Chloride 110 mmol/L (98-107); Creatinine, Serum 1.29 mg/dL (0.70-1.30); EST Glomerular Filtration Rate 60 mL/min (>60); Est Glom Filt Rate - Afr Amer 73 mL/min (>60); Glucose 101 mg/dL (74-106); Potassium 4.2 mmol/L (3.5-5.1); Sodium Level 140 mmol/L (136-145)
== END | disposition home or self-care (01) ==
LOC: MTLAB 11:54
PROVIDERS: PCP Nurse Practitioner Family; Referring Provider Nurse Practitioner Family; Visit Provider Nurse Practitioner Family
DX: I12.9 Hypertensive chronic kidney disease with stage 1 through stage 4 chronic kidney disease, or unspecified chronic kidney disease (principal); N18.31 Chronic kidney disease, stage 3a; R06.02 Shortness of breath
CPT/HCPCS: 36415; 80048

== ENCOUNTER → 2023-08-02 | Outpatient (CLI) | payer OTHER, SELFPAY ==
[2023-08-02 10:11] LABS: Hematocrit 43.5 % (40-54); Mean Corp Hgb Conc 32.2 g/dL (32-36); Mean Corpuscular Volume 90.1 fL (80-94); Mean Platelet Vol. 9.8 fl (6.2-12.0); Platelet Count 258 K/mm3 (150-450); RBC Distribution Width SD 39.5 fl (35.1-43.9); Red Blood Count 4.83 M/mm3 (4.6-6.2)
[2023-08-02 10:31] LABS: PTHIN 49.9 pg/mL (18.4-80.1)
[2023-08-02 10:38] LABS: Vitamin D,25 Hydroxy 71.1 ng/mL
[2023-08-02 11:09] LABS: ALB/GLOB Ratio 1.1 RATIO (0.9-2.4); AST(SGOT) 21 U/L (15-37); Alanine Aminotransfer ALT/SGPT 46 U/L (16-61); Albumin, Serum 3.7 g/dL (3.2-5.0); Alkaline Phosphatase 49 U/L (45-117); Anion Gap 4 (5-15); BUN 22 mg/dL (7-18); BUN/Creat Ratio 16.8 RATIO (10-20); Calcium,Total 8.9 mg/dL (8.5-10.1); Chloride 109 mmol/L (98-107); Cholesterol 170 mg/dL (200); Creatinine, Serum 1.31 mg/dL (0.70-1.30); EST Glomerular Filtration Rate 59 mL/min (>60); Est Glom Filt Rate - Afr Amer 71 mL/min (>60); Globulin 3.5 g/dL (2.2-4.2); Glucose 99 mg/dL (74-106); High Density Lipoprotein 44 mg/dL; PSA,Total- Diagnostic 1.35 ng/mL (0.0-4.0); Protein, Total 7.2 g/dL (6.4-8.2); Sodium Level 140 mmol/L (136-145); Triglycerides 143 mg/dL; Very Low Density Lipoprotein 29 mg/dL (5-40)
[2023-08-02 12:45] LABS: Hemoglobin A1c 6.1 % (3.8-5.6)
== END | disposition home or self-care (01) ==
LOC: MTLAB 09:06
PROVIDERS: PCP Nurse Practitioner Family; Referring Provider Nurse Practitioner Family; Visit Provider Nurse Practitioner Family
DX: I12.9 Hypertensive chronic kidney disease with stage 1 through stage 4 chronic kidney disease, or unspecified chronic kidney disease (principal); N18.30 Chronic kidney disease, stage 3 unspecified; R73.01 Impaired fasting glucose; E78.5 Hyperlipidemia, unspecified; E55.9 Vitamin D deficiency, unspecified
CPT/HCPCS: 36415; 80053; 80061; 82306; 83036; 83970; 84153; 84244; 84443; 85027

== ENCOUNTER → 2024-01-29 | Outpatient (CLI) | payer OTHER, SELFPAY ==
[2024-01-29 10:09] LABS: Hematocrit 40.9 % (40-54); Hemoglobin 13.5 g/dL (13.0-16.5); Mean Corpuscular Hgb 28.7 pg (27.0-32.0); Mean Platelet Vol. 9.7 fl (6.2-12.0); Platelet Count 200 K/mm3 (150-450); RBC Distribution Width CV 12.2 % (11.6-14.6); RBC Distribution Width SD 39.1 fl (35.1-43.9)
[2024-01-29 10:18] LABS: PTHIN 26.9 pg/mL (18.4-80.1)
[2024-01-29 10:21] LABS: Vitamin D,25 Hydroxy 64.6 ng/mL
[2024-01-29 10:35] LABS: ALB/GLOB Ratio 1.2 RATIO (0.9-2.4); AST(SGOT) 31 U/L (15-37); Alanine Aminotransfer ALT/SGPT 50 U/L (16-61); Albumin, Serum 3.7 g/dL (3.2-5.0); Alkaline Phosphatase 47 U/L (45-117); Anion Gap 5 (5-15); BUN 18 mg/dL (7-18); BUN/Creat Ratio 15.1 RATIO (10-20); Calcium,Total 9.1 mg/dL (8.5-10.1); Chloride 109 mmol/L (98-107); Cholesterol 187 mg/dL (200); Creatinine, Serum 1.19 mg/dL (0.70-1.30); EST Glomerular Filtration Rate 66 mL/min (>60); Est Glom Filt Rate - Afr Amer 80 mL/min (>60); Globulin 3.2 g/dL (2.2-4.2); Glucose 121 mg/dL (74-106); High Density Lipoprotein 36 mg/dL; Microalbumin,Random Urine 15.3 mg/L (NO RANGE EST.); Microalbumin:Creatinine Ratio 6.8 mg/g CRE (<30 mg/g CRE); PSA,Total- Diagnostic 1.42 ng/mL (0.0-4.0); Potassium 4.1 mmol/L (3.5-5.1); Protein, Total 6.9 g/dL (6.4-8.2); Sodium Level 142 mmol/L (136-145); Triglycerides 259 mg/dL; Very Low Density Lipoprotein 52 mg/dL (5-40)
[2024-02-02 17:07] LABS: Renin, Plasma 3.072 ng/mL/hr (0.167-5.380)
== END | disposition home or self-care (01) ==
PROVIDERS: PCP Nurse Practitioner Family; Referring Provider Nurse Practitioner Family; Visit Provider Nurse Practitioner Family
DX: I12.9 Hypertensive chronic kidney disease with stage 1 through stage 4 chronic kidney disease, or unspecified chronic kidney disease (principal); N18.30 Chronic kidney disease, stage 3 unspecified; E78.5 Hyperlipidemia, unspecified; R73.01 Impaired fasting glucose; E55.9 Vitamin D deficiency, unspecified; R97.20 Elevated prostate specific antigen [PSA]
CPT/HCPCS: 36415; 80053; 80061; 82043; 82306; 82570; 83970; 84153; 84244; 85027

== ENCOUNTER → 2024-08-12 | Outpatient (CLI) | payer OTHER, SELFPAY ==
[2024-08-12 11:06] LABS: Hematocrit 39.5 % (40-54); Hemoglobin 12.7 g/dL (13.0-16.5); Mean Corp Hgb Conc 32.2 g/dL (32-36); Mean Corpuscular Hgb 29.1 pg (27.0-32.0); Mean Corpuscular Volume 90.6 fL (80-94); Mean Platelet Vol. 10.5 fl (6.2-12.0); Platelet Count 216 K/mm3 (150-450); RBC Distribution Width CV 11.8 % (11.6-14.6); RBC Distribution Width SD 38.9 fl (35.1-43.9); Red Blood Count 4.36 M/mm3 (4.6-6.2); White Blood Count 4.5 K/mm3 (4.4-11.0)
[2024-08-12 11:19] LABS: ALB/GLOB Ratio 1.2 RATIO (0.9-2.4); AST(SGOT) 23 U/L (15-37); Alanine Aminotransfer ALT/SGPT 40 U/L (16-61); Albumin, Serum 3.7 g/dL (3.2-5.0); Alkaline Phosphatase 56 U/L (45-117); Anion Gap 6 (5-15); BUN 23 mg/dL (7-18); BUN/Creat Ratio 19.5 RATIO (10-20); Calcium,Total 9.2 mg/dL (8.5-10.1); Chloride 109 mmol/L (98-107); Cholesterol 141 mg/dL (200); Creatinine, Serum 1.18 mg/dL (0.70-1.30); EST Glomerular Filtration Rate 66 mL/min (>60); Est Glom Filt Rate - Afr Amer 80 mL/min (>60); Globulin 3.1 g/dL (2.2-4.2); Glucose 103 mg/dL (74-106); High Density Lipoprotein 40 mg/dL; PSA,Total- Diagnostic 1.86 ng/mL (0.0-4.0); Potassium 4.1 mmol/L (3.5-5.1); Protein, Total 6.8 g/dL (6.4-8.2); Sodium Level 143 mmol/L (136-145); Triglycerides 126 mg/dL; Very Low Density Lipoprotein 25 mg/dL (5-40)
[2024-08-12 11:52] LABS: Microalbumin,Random Urine 14.6 mg/L (NO RANGE EST.); Microalbumin:Creatinine Ratio 8.6 mg/g CRE (<30 mg/g CRE)
[2024-08-23 12:09] LABS: PTHIN 26 pg/mL (15-65)
== END | disposition home or self-care (01) ==
LOC: MTLAB 08:13
PROVIDERS: PCP Nurse Practitioner Family; Referring Provider Nurse Practitioner Family; Visit Provider Nurse Practitioner Family
DX: I12.9 Hypertensive chronic kidney disease with stage 1 through stage 4 chronic kidney disease, or unspecified chronic kidney disease (principal); N18.30 Chronic kidney disease, stage 3 unspecified; E78.5 Hyperlipidemia, unspecified; R97.20 Elevated prostate specific antigen [PSA]; R73.01 Impaired fasting glucose; E55.9 Vitamin D deficiency, unspecified
CPT/HCPCS: 36415; 80053; 80061; 82043; 82306; 82570; 83036; 83970; 84153; 85027

== ENCOUNTER → 2025-01-24 | Outpatient (CLI) | payer BC, SELFPAY ==
[2025-01-24 10:45] LABS: Hematocrit 39.9 % (40-54); Hemoglobin 13.5 g/dL (13.0-16.5); Mean Corp Hgb Conc 33.8 g/dL (32-36); Mean Corpuscular Hgb 30.2 pg (27.0-32.0); Mean Corpuscular Volume 89.3 fL (80-94); Platelet Count 182 K/mm3 (150-450); RBC Distribution Width SD 38.9 fl (35.1-43.9); Red Blood Count 4.47 M/mm3 (4.6-6.2); White Blood Count 3.9 K/mm3 (4.4-11.0)
[2025-01-24 11:38] LABS: Hemoglobin A1c 6.6 % (<=5.6)
[2025-01-24 11:41] LABS: Microalbumin,Random Urine < 12.0 mg/L (NO RANGE EST.); Microalbumin:Creatinine Ratio UNABLE TO CALCULATE mg/g CRE
[2025-01-24 11:43] LABS: PTHIN 36 pg/mL (11-61)
[2025-01-24 11:53] LABS: ALB/GLOB Ratio 1.7 RATIO (0.9-2.4); AST(SGOT) 41 U/L (<=37); Alanine Aminotransfer ALT/SGPT 47 U/L (<=46); Albumin, Serum 4.4 g/dL (3.4-4.8); Alkaline Phosphatase 54 U/L (40-129); Anion Gap 12 (5-15); BUN 29 mg/dL (4-19); BUN/Creat Ratio 22.3 RATIO (10-20); Calcium,Total 9.7 mg/dL (7.6-11.0); Carbon Dioxide 24.8 mmol/L (21.0-32.0); Chloride 104 mmol/L (98-108); EST Glomerular Filtration Rate 62 (>60); Globulin 2.6 g/dL (2.2-4.2); Glucose 147 mg/dL (70-99); Potassium 4.5 mmol/L (3.3-5.1); Sodium Level 141 mmol/L (133-145)
[2025-01-24 12:10] LABS: Cholesterol 187 mg/dL (<=200); High Density Lipoprotein 40 mg/dL; Low Density Lipoprotein Calc. 96 mg/dL; Triglycerides 256 mg/dL; Very Low Density Lipoprotein 51 mg/dL (5-40)
[2025-01-24 12:14] LABS: PSA,Total- Diagnostic 1.51 ng/mL (0.00-4.00); Vitamin D,25 Hydroxy 47.2 ng/mL (30-100)
== END | disposition home or self-care (01) ==
LOC: MTLAB 08:11
PROVIDERS: PCP Nurse Practitioner Family; Referring Provider Nurse Practitioner Family; Visit Provider Nurse Practitioner Family
DX: I12.9 Hypertensive chronic kidney disease with stage 1 through stage 4 chronic kidney disease, or unspecified chronic kidney disease (principal); N18.30 Chronic kidney disease, stage 3 unspecified; E78.5 Hyperlipidemia, unspecified; E78.1 Pure hyperglyceridemia; E55.9 Vitamin D deficiency, unspecified; R97.20 Elevated prostate specific antigen [PSA]; N40.1 Benign prostatic hyperplasia with lower urinary tract symptoms; R73.01 Impaired fasting glucose
CPT/HCPCS: 36415; 80053; 80061; 82043; 82306; 82570; 83036; 83970; 84153; 85027

== ENCOUNTER → 2025-08-07 | Outpatient (CLI) | payer BC, SELFPAY ==
--- NOTE | 2025-08-07 11:27 | RAD_ITS ---
PROCEDURE: L/S SPINE BENDING FLEX/EXT 08/07/2025 REASON FOR EXAM: PAIN TECHNIQUE: Procedure Code: [id number] Modality: DX Procedure: L/S SPINE BENDING FLEX/EXT COMPARISON: None FINDINGS: 6 views of the lumbosacral spine were obtained. There is normal mineralization of the osseous structures. There are no sacral fractures. Very mild osteoarthritic changes of the SI joints are noted. There are 5 lumbar-type vertebral bodies below the last set of paired ribs. The vertebral body heights and alignment are within normal limits. There is no spondylolisthesis or spondylolysis. There is no instability on the flexion or extension views. There is disc space narrowing involving the L1-L2, L2-L3 and L5-S1 disc spaces. The remaining disc spaces are well-maintained. Paravertebral soft tissue structures are unremarkable. RAD/L/S Spine Bending Flex/Ext IMPRESSION: Degenerative disc disease involving L1-L2, L2-L3, and L5-S1 levels. Very mild osteoarthritic changes of the SI joints bilaterally Reading Location: [id number]
--- NOTE | 2025-08-07 11:29 | RAD_ITS ---
PROCEDURE: CERV SPINE OBL/FLEX/EXT COMP 08/07/2025 REASON FOR EXAM: PAIN TECHNIQUE: Procedure Code: [id number] Modality: DX Procedure: CERV SPINE OBL/FLEX/EXT COMP COMPARISON: None FINDINGS: Vertebrae: Mild diffuse osteopenia of the cervical spine is noted. Vertebral body heights are within normal limits. There is no spondylolysis. Mild to moderate spondylosis is noted. The dens and lateral masses are somewhat obscured by normal overlapping anatomical structures. The visualized portions are unremarkable. There is a limbus vertebra off the anterior inferior aspect of the C4 level and anterior superior aspect of the C6 level Disc spaces: There is disc space narrowing involving the C5-C6 and C6-C7 disc spaces. The remaining disc spaces appear to be well-maintained. Alignment: The vertebral body alignment is within normal limits. There is no spondylolisthesis. Soft tissues: There is no prevertebral soft tissue swelling. Paravertebral soft tissues are unremarkable. RAD/Cerv Spine Obl/Flex/Ext Comp IMPRESSION: Mild diffuse osteopenia cervical spine Degenerative disc disease involving C5-C6 and C6-C7 Reading Location: [id number]
== END | disposition home or self-care (01) ==
LOC: MTRAD 11:25
PROVIDERS: PCP Nurse Practitioner Family; Referring Provider Anesthesiology Pain Medicine; Visit Provider Anesthesiology Pain Medicine
DX: M51.372 Other intervertebral disc degeneration, lumbosacral region with discogenic back pain and lower extremity pain (principal); M50.30 Other cervical disc degeneration, unspecified cervical region
CPT/HCPCS: 72052; 72120

== ENCOUNTER → 2025-08-07 | Outpatient (CLI) | payer BC, SELFPAY ==
[2025-08-07 10:09] LABS: Hematocrit 36.9 % (40-54); Hemoglobin 12.8 g/dL (13.0-16.5); Mean Corp Hgb Conc 34.7 g/dL (32-36); Mean Corpuscular Volume 85.6 fL (80-94); Mean Platelet Vol. 9.8 fl (6.2-12.0); Platelet Count 190 K/mm3 (150-450); RBC Distribution Width CV 11.9 % (11.6-14.6); RBC Distribution Width SD 37.2 fl (35.1-43.9); Red Blood Count 4.31 M/mm3 (4.6-6.2); White Blood Count 3.7 K/mm3 (4.4-11.0)
[2025-08-07 10:24] LABS: Creatinine, Urine (random) 351.00 mg/dL (39.00-259.00); Microalbumin,Random Urine < 12.0 mg/L (<20 mg/L)
[2025-08-07 10:34] LABS: PTHIN 36 pg/mL (11-61)
[2025-08-07 12:22] LABS: AST(SGOT) 44 U/L (<=37); Alanine Aminotransfer ALT/SGPT 47 U/L (<=46); Albumin, Serum 4.2 g/dL (3.4-4.8); Alkaline Phosphatase 46 U/L (40-129); Anion Gap 11 (5-15); BUN 22 mg/dL (4-19); BUN/Creat Ratio 16.1 RATIO (10-20); Calcium,Total 9.4 mg/dL (7.6-11.0); Carbon Dioxide 25.6 mmol/L (21.0-32.0); Chloride 105 mmol/L (98-108); Cholesterol 169 mg/dL (<=200); Globulin 2.6 g/dL (2.2-4.2); Glucose 144 mg/dL (70-99); Low Density Lipoprotein Calc. 88 mg/dL; PSA,Total- Diagnostic 1.23 ng/mL (0.00-4.00); Potassium 4.4 mmol/L (3.3-5.1); Triglycerides 228 mg/dL; Very Low Density Lipoprotein 46 mg/dL (5-40); Vitamin D,25 Hydroxy 52.1 ng/mL (30-100); cholesterol:hdl ratio screen 4.76
== END | disposition home or self-care (01) ==
PROVIDERS: PCP Nurse Practitioner Family; Referring Provider Nurse Practitioner Family; Visit Provider Nurse Practitioner Family
DX: I12.9 Hypertensive chronic kidney disease with stage 1 through stage 4 chronic kidney disease, or unspecified chronic kidney disease (principal); N18.30 Chronic kidney disease, stage 3 unspecified; R73.01 Impaired fasting glucose; R97.20 Elevated prostate specific antigen [PSA]
CPT/HCPCS: 36415; 80053; 80061; 82043; 82306; 82570; 83036; 83970; 84153; 85027